=== PATIENT | female | born 1985 | race African-American/Black ===

== ENCOUNTER 2016-06-24 20:21 | Observation (INO) ==
[2016-06-24] MEDS ORDERED: ASPIRIN 325 MG TABLET PO STA (22:05)
--- NOTE | 2016-06-24 22:09 | EKG Report ---
Stationary ECG Study [facility] ER Test Date: 06/24/2016 9:04:21 PM Pat Name: JOSE GARCIA Department: Room: Gender: F Juvenile Justice Officer: : 1985 Requested by: Blaise Dumont Order Number: [id number] Muna MD: TALI QUARLES Intervals [place] Rate: 79 P: 19 TX: 126 QRS: 43 QRSD: 85 T: 3 QT: 363 QTc: 398 Interpretive Statements SINUS RHYTHM Electronically Signed On 06-26-16 11:21:42 CDT by TALI QUARLES [email or web address]
--- NOTE | 2016-06-24 22:17 | Emergency Department Note ---
Srinivas Toussaint Gwan, am scribing for, and in the presence of, Blaise Elizabeth MD 22 :07. Clara Toussiant Charles R, MD, personally performed the services described in this documentation, ascribed by Shelia Espino in my presence, and it is both accurate and complete . Arrival - Arrival Chief Complaint: Non-Specific Stated Complaint: PAIN IN LEFT ARM/NECK ED Nursing Triage Note: pt to traige c/o left side tingling numbness since last night. pt states left eye/ buring / seing floaters. pt states she has an appt. with dr thomas for enlarged heart. pt has had several tia in the past Mode of Arrival: Ambulatory Limitations: No Limitations Source: Patient, Old Records Reviewed, RN Notes Reviewed Time Seen by Provider: 06/24/16 21:19 - History of Present Illness HPI Narrative: Pt is a 30 y/o female, with a hx of TIA, who presents to the ED with a c/o left sided facial/arm/hand tingling/numbness/weakness and elevated BP with an onset last night. During triage, pt's BP was 145/90. Patient stated that she is also having intermittent SOB that began to worsen tonight prompting her visit to the ED for further evaluation. Patient confirmed that she took a low dose aspirin today, that she is followed by Dr. Montero and that she has an appointment with Dr. Whatley in 07/2016. She denies any hx of DM or having any injury/trauma to her left side. Pt has a PMHx of CHF, HTN and dyslipidemia. No other problems/ complaints reported in ED. Onset (ago): day(s) Consistency: constant Severity: moderate Allergies/Adverse Reactions: Allergies Allergy/AdvReac Type Severity Reaction Status Date / Time No Known Allergies Allergy Verified 06/24/16 21:00 Home Medications: Home Medications Medication Instructions Recorded Confirmed Type Aspirin [Ecotrin] 81 mg PO DAILY 11/11/14 12/23/15 History hydroCHLOROthiazide 25 mg PO DAILY 11/11/14 12/23/15 History [Hydrochlorothiazide] Ondansetron [Ondansetron Odt] 4 mg PO Q4H PRN #10 tab.rapdis 08/19/15 12/23/15 Rx Esomeprazole Magnesium [Nexium] 20 mg PO DAILY 12/22/15 12/23/15 History Gabapentin 300 mg PO TID 12/22/15 12/23/15 History Metoprolol Succinate 100 mg PO DAILY 12/22/15 12/23/15 History Pravastatin [Pravachol] 20 mg PO BEDTIME #30 tablet 12/23/15 Rx traMADol TAB [Ultram] 1 tablet PO Q6HR PRN 12/23/15 12/23/15 History Review of System - Review of System 12 point system: reviewed and no additional remarkable complaints except as stated - Review of System Musculoskeletal: Present: arm pain (numbness/weakness/tingling), neck pain ( left sided numbness/weakness/tingling) Medical,Surgical,& Family Hx - Medical History Cardio: History of: CHF, Hypertension Neurology: History of: TIA (2011. 2012) Endocrine: History of: Dyslipidemia Musculoskeletal: History of: Back/Neck Problems (disc) - Surgical History Reproductive Surgeries: Surgical HX of;: Section - Family History Family History: Reports;: Family Diabetes, Family Hypertension - Social History Smoking Status: Never smoker Frequency of Alcohol Use: None Type of Drug Use: None Exam Vital Signs: Vital Signs Temperature 98.0 F 06/24/16 22:48 Pulse Rate 76 06/24/16 22:48 Respiratory Rate 20 06/24/16 22:48 Blood Pressure 145/90 06/24/16 22:48 O2 Sat by Pulse Oximetry 100 06/24/16 22:44 - General General appearance: alert, in no apparent distress - Head Head exam: Present: atraumatic, normocephalic - Eye Eye exam: Present: normal appearance, PERRL, EOMI - ENT ENT exam: Present: normal oropharynx, mucous membranes moist, TM's normal bilaterally, normal external ear exam - Neck Neck exam: Present: full ROM, trachea midline. Absent: tenderness, meningismus , lymphadenopathy - Chest Chest inspection: Present: symmetric chest wall rise. Absent: tenderness - Respiratory Respiratory exam: Present: normal lung sounds bilaterally. Absent: respiratory distress - Cardiovascular Cardiovascular exam: Present: regular rate, normal rhythm, normal heart sounds. Absent: murmur, rubs, gallop - Abdominal Exam Abdominal exam: Present: soft, normal bowel sounds. Absent: distention, tenderness, guarding - Extremities Exam Extremities exam: Present: full ROM. Absent: tenderness, pedal edema, calf tenderness - Back Exam Back exam: Present: full ROM. Absent: tenderness - Psychiatric Psychiatric exam: Present: normal affect, normal mood - Skin Skin exam: Present: warm, dry, intact, normal color Course - Consultations Consultation #1: spoke to Dr Delgadillo he said that we could admit the patient and he will see her in the morning at the hospital Time: 22:17 Consultation #2: Hospitalist will admit patient Time: 22:18 Results - Labs CBC & BMP: 06/24/16 22:22 06/24/16 22:22 Lab Results: I have reviewed the patients labs Disposition Clinical Impression: TIA (transient ischemic attack), Left sided numbness Case discussed with: patient, patient's family Disposition: Still a Patient Condition: Stable Time of Disposition: 23:06
[2016-06-24] MEDS ORDERED: ASPIRIN 325 MG TABLET ONE (22:21)
--- NOTE | 2016-06-24 22:24 | CT Report ---
CT of the head without contrast. Indication: Hemiparesthesias. Signs and symptoms of a stroke. Comparison: December 22, 2015. There is a partial empty sella. The ventricles are normal in size and configuration. There is no mass effect, midline shift, or area of hemorrhage. The calvarium is intact. The mastoid air cells are clear. The included paranasal sinuses are clear. Impression: No acute abnormality or interval change is seen. The CT exam was performed using one or more of the following dose reduction techniques: Automated exposure control, adjustment of the mA and/or kV according to patient size, or use of iterative reconstruction technique. PROCEDURE INTERPRETED AT [facility] DEPARTMENT OF RADIOLOGY Final Report Signed by: Dr. Toshia Hahn
--- NOTE | 2016-06-24 22:24 | XRay Report ---
Portable chest. Indication: Cardiomegaly. Comparison: November 11, 2014 The heart and mediastinal contours are unremarkable. The pulmonary vasculature is normal. There is no consolidation, pneumothorax, or pleural effusion. The osseous structures are unremarkable. Impression: No abnormality is seen. PROCEDURE INTERPRETED AT [facility] DEPARTMENT OF RADIOLOGY Final Report Signed by: Dr. Toshia Hahn
[2016-06-24 22:46] LABS: Basophils % 0.2 % (0.0-0.8); Eosinophils # 0.2 10*3/uL (0.0-0.87); Eosinophils % 1.9 % (0.00-10.9); Hematocrit 34.3 VOL% (35.7-47.0); Hemoglobin 10.4 GM/DL (12.0-16.0); Immature Granulocytes % 0.3 %; Immature Granulocytes Absolute 0.03 #; Lymphocytes # 3.5 10*3/uL (1.4-4.0); Lymphocytes % 34.6 % (21.3-54.2); Mean Corpuscular HGB Conc 30.3 GM/DL (32-36); Mean Corpuscular Hemoglobin 22 PG (27-34); Mean Corpuscular Volume 73.8 FL (87-102); Mean Platelet Volume 11.2 FL (9.6-12.0); Monocytes # 0.8 10*3/uL (0.11-0.8); Monocytes % 7.9 % (1.7-12.7); Neutrophils # 5.6 10*3/uL (1.4-7.4); Neutrophils % 55.1 % (38.7-73.9); Platelet Count 231 T/CUMM (130-400); Red Blood Count 4.65 MC/CUMM (3.8-5.5); Red Cell Distribution Width 14.6 % (9.3-17.3); White Blood Count 10.1 T/CUMM (4-12)
[2016-06-24 22:48] LABS: Apearance,Urine CLEAR (Clear); Bilirubin,Urine Negative (Negative); Blood, Urine Negative (Negative); Glucose,Urine (UA) Negative (Negative); Ketones,Urine Negative (Negative); Nitrite,Urine Negative (Negative); Protein,Urine Negative; RBC,Urine 1 /HPF (0-4); Squamous Epithelial Cell,Urine Occasional /HPF (0-10); Urine Color Straw (Yellow); Urine Specific Gravity 1.013 (1.001-1.035); Urine Urobilinogen < 2.0 EU/DL (0.2-1.0); WBC,Urine 1 /HPF (0-6)
[2016-06-24 22:55] LABS: PT Patient Result 10.2 SECS; Partial Thromboplastin Time 30.7 SECS (0-40)
[2016-06-24 23:02] LABS: Alanine Aminotransferase 21 U/L (13-56); Albumin 3.7 G/DL (3.4-5.0); Alkaline Phosphatase 47 U/L (45-117); Aspartate Amino Transferase 20 U/L (0-37); Bilirubin,Total < 0.39 MG/DL (0.2-1.0); Blood Urea Nitrogen 11 MG/DL (7-18); Calcium 8.6 MG/DL (8.5-10.1); Glucose 105 MG/DL (74-106); Osmolality,Calculated 275.5 MOS/KG (273-304); Potassium 3.5 MMOL/L (3.5-5.1); Sodium 139 MMOL/L (136-145); Total Protein 7.5 G/DL (6.4-8.3)
[2016-06-24 23:18] LABS: Barbiturates Screen,Urine Negative (Negative); Benzodiazepines Screen,Urine Negative (Negative); Cannabinoid Screen,Urine Negative (Negative); Opiate Screen,Urine Negative (Negative); Phencyclidine Screen,Urine Negative (Negative)
--- NOTE | 2016-06-24 23:55 | Hospitalist History & Physical ---
Assessment and Plan (1) TIA (transient ischemic attack) Status: Acute Current Visit: Yes (2) Hypertension Status: Acute Current Visit: No (3) Degenerative disc disease Status: Acute Current Visit: No (4) History of neuropathy Status: Acute Current Visit: No (5) Left sided numbness Status: Acute Current Visit: Yes (6) Chronic migraine Status: Acute Assessment and plan: Our plan for this patient will be as follows: 1. Admit the patient to a monitored bed 2. Continue home meds as appropriate 3. Consult neurology 4. 2D echo 5. MRI Current Visit: No History of Present Illness Chief complaint: Left hand weakness History of present illness: Ms. Starks is a 30 year old female with past medical history significant for hypertension, TIA, cardiomyopathy, and history of pancreatitis who is in her normal state of health to the past couple of days. Patient's been having this left arm weakness that is been coming and going. She says when it is present are numb arm feels numb and tingly. She has had TIAs before and it affected the same side. When she checks her blood pressure when first came in her blood pressure was elevated. Currently is not elevated while in the hospital. She did not have any problem with her speech or walking. Patient was at [employer] and her elementary school tutor urged to come into the hospital for further evaluation. She is a patient of Dr. Montero and Dr. Montero has agreed to see her in the morning Home Medications Medication Instructions Recorded Confirmed Type Aspirin [Ecotrin] 81 mg PO DAILY 11/11/14 12/23/15 History hydroCHLOROthiazide 25 mg PO DAILY 11/11/14 12/23/15 History [Hydrochlorothiazide] Ondansetron [Ondansetron Odt] 4 mg PO Q4H PRN #10 tab.rapdis 08/19/15 12/23/15 Rx Esomeprazole Magnesium [Nexium] 20 mg PO DAILY 12/22/15 12/23/15 History Gabapentin 300 mg PO TID 12/22/15 12/23/15 History Metoprolol Succinate 100 mg PO DAILY 12/22/15 12/23/15 History Pravastatin [Pravachol] 20 mg PO BEDTIME #30 tablet 12/23/15 Rx traMADol TAB [Ultram] 1 tablet PO Q6HR PRN 12/23/15 12/23/15 History Allergies Allergy/AdvReac Type Severity Reaction Status Date / Time No Known Allergies Allergy Verified 06/24/16 21:00 Medical,Surgical,& Family Hx - Medical History Cardio: History of: CHF, Hypertension Neurology: History of: TIA (2012. 2012) Endocrine: History of: Dyslipidemia Musculoskeletal: History of: Back/Neck Problems (disc) - Surgical History Reproductive Surgeries: Surgical HX of;: Section - Family History Family History: Reports;: Family Diabetes, Family Hypertension - Social History Smoking Status: Never smoker Frequency of Alcohol Use: None Type of Drug Use: None 12 point system: reviewed and no additional remarkable complaints except as stated Exam - Constitutional Vitals: Period Temp Pulse Resp BP Sys/Ta Pulse Ox Last 24 Hr 98.0 F-98.0 F 72-81 18-20 127-145/62-90 98-100 General appearance: normal weight - Head Head exam: Present: normal inspection - Eye Eye exam: Present: EOMI Pupils: Present: STEFF - ENT ENT exam: Present: normal exam, normal external ear exam - Neck Neck exam: Present: normal inspection - Respiratory Respiratory exam: Present: clear to auscultation bilaterally - Cardiovascular Cardiovascular exam: Present: regular rate and rhythm - GI/Abdominal GI/Abdominal exam: Present: normal bowel sounds - Extremities Exam Extremities exam: Present: normal inspection - Back Exam Back exam: Present: normal inspection - Neurological Exam Neurological exam: Present: alert, other (Slight decrease in handgrip on the left) - Psychiatric Psychiatric exam: Present: normal affect - Skin Skin exam: Present: normal color Results - Labs CBC & BMP: 06/24/16 22:22 06/24/16 22:22
[2016-06-24] MEDS ORDERED: LABETALOL 20 MG/4 ML SYRINGE IV PRN (23:57)
[2016-06-24] MEDS ORDERED: ACETAMINOPHEN 325 MG TABLET PO PRN (23:57)
[2016-06-24] MEDS ORDERED: ONDANSETRON 4 MG/2 ML VIAL IV PRN (23:57)
[2016-06-24] MEDS ORDERED: ZALEPLON 5 MG CAPSULE PO PRN (23:57)
[2016-06-25 01:47] LABS: Risk Ratio 4.09; VLDL CHOLESTEROL 43.2 MG/DL
[2016-06-25 07:55] VITALS: BP 118/73
[2016-06-25] MEDS ORDERED: ASPIRIN 325 MG TABLET PO SCH (09:00)
--- NOTE | 2016-06-25 09:29 | Event Note ---
Pt gone for MRI.
--- NOTE | 2016-06-25 10:20 | Magnetic Resonance Report ---
MR head/brain wo con Indication: Left hand weakness Comparison: MRI brain dated December 23, 2015 Technique: Multiplanar magnetic resonance imaging was performed of the brain without the use of intravenous contrast. Findings: Interval appearance of subcentimeter hyperintense T2 focus within the periatrial white matter of the right parietal lobe. The midline structures are nondisplaced. There is no evidence of hydrocephalus. The russell-white matter differentiation is maintained. There is no evidence of acute intracranial hemorrhage or ischemia. The included orbits and their contents appear within normal limits. T2 major vascular flow voids are maintained. IMPRESSION: Interval appearance of subcentimeter hyperintense T2 focus within the periatrial white matter of the right parietal lobe. This finding is nonspecific. Considerations include demyelinating process such as multiple sclerosis as well as migraine related signal abnormality. PROCEDURE INTERPRETED AT [facility] DEPARTMENT OF RADIOLOGY Final Report Signed by: Dr Bonifacio Quiroz
--- NOTE | 2016-06-25 11:35 | Discharge Summary ---
Hospital Course - Hospital Course Hospital Course: 30-year-old black female admitted to the hospital with left arm and hand numbness and tingling. She has a history of TIA and migraines in the past. She was admitted for further observation and workup. She underwent an MRI which was negative for acute stroke. It does show an area of unspecified importance that could be related to underlying multiple sclerosis versus migraines. I had a lengthy discussion with the patient regarding this MRI finding. She does have migraines but has them infrequently. She does follow- up with Dr. Yash Marshall as an outpatient and believes that she has been worked up for multiple sclerosis in the past. Neurology is on bypass this weekend and her symptoms have resolved completely. She is being discharged home to follow- up with Dr. Yash Marshall in his office in the next 1-2 weeks. Her home medications were reviewed and reconciled. The patient is a full code. She is in no distress and has reached maximal benefit from this hospitalization. - Time spent with patient Time with patient DS: Less than 30 minutes Diagnosis - Discharge Diagnosis (1) TIA (transient ischemic attack) Status: Inactive (2) Hypertension Status: Chronic (3) Degenerative disc disease Status: Chronic (4) History of neuropathy Status: Chronic (5) Chronic migraine Status: Chronic (6) Left sided numbness Status: Resolved Specialty Discharge - Follow Up or Referrals Follow up with: Allan Montero MD [Physician] - 06/29/16 9:45 am ([employer] IN BOTTLES, INSURANCE CARD, ACID DUMPER'S LICENSE TO APPT.) Discharge Plan - Discharge Data Disposition: Disch To Home/Self Care Condition at Discharge: Stable Discharge Diet: advance to your usual diet Activity: resume usual activities as tolerated Hygiene: no restrictions Weight Bearing at Discharge: full weight bearing Driving: no restrictions - Discharge Medications Continue hydroCHLOROthiazide [Hydrochlorothiazide] 25 mg PO DAILY Aspirin [Ecotrin] 81 mg PO DAILY Ondansetron [Ondansetron Odt] 4 mg PO Q4H PRN #10 tab.rapdis PRN Reason: Nausea Esomeprazole Magnesium [Nexium] 20 mg PO DAILY Metoprolol Succinate 100 mg PO DAILY Gabapentin 300 mg PO TID traMADol TAB [Ultram] 1 tablet PO Q6HR PRN PRN Reason: Pain Pravastatin [Pravachol] 20 mg PO BEDTIME #30 tablet - Follow Up or Referral Follow Up: Allan Montero MD [Physician] - 06/29/16 9:45 am ([employer] IN BOTTLES, INSURANCE CARD, ACID DUMPER'S LICENSE TO APPT.) - Forms/Instructions Instructions: Transient Ischemic Attack (DC), Chronic Hypertension (DC) Exam - Constitutional Vitals: Period Temp Pulse Resp BP Sys/Ta Pulse Ox Last 24 Hr 97.1 F-97.8 F 73-85 18-20 108-130/62-73 98-100 Exam: Constitutional System: Mild distress. No tremulousness. Head: Normocephalic, atraumatic. Ears, Nose and Throat System: No pain or tenderness. No epistaxis or discharge Eyes System: Pupils equal, round, and reactive. Extraocular muscles intact. Neck: Supple, without adenopathy, No jugular venous distention. No thyromegaly, neck mass, or prior surgery apparent. Respiratory System: Chest clear to auscultation. Cardiovascular System: Heart with regular rate and rhythm. No murmur. GI System: Abdomen soft, nontender. Normo active bowel sounds present. Musculoskeletal System: limbs with no pedal edema. Full distal pulses. Neurological System: No discernable sensory deficit. No aphasia Psychiatric System: Conversation is rational Discharge Results - Imaging and Cardiology Procedure: MRI: image reviewed by me, report reviewed by me DS: Provider Date of admission: 06/24/16 23:57 Primary care physician: . No PCP Attending physician on admission: Luis Zamudio MD Consults: 06/25/16 00:02 Consult to Physician [CONS] Routine Comment: patient of his Consulting Provider: Allan Montero Discharging clinician: Luis Zamudio MD Expected date of discharge: 06/25/16
--- NOTE | 2016-06-25 20:41 | ECHO Report ---
Malu Starks Exam Date: 06/25/2016 10:28 Referring Physician: Technologist: Whitney Ellington Age: 30 Ht (in): 65 Wt (lb): 199 Gender: F Exam Location: [facility] Echo Indications: HTN, Hx. post cardiomyopathy, Lt. Sided numbness, TIA BP: 118 / 73 HR: 88 Rhythm: Sinus Technical Quality: Good IMPRESSIONS Normal LV systolic and diastolic function, ejection fraction 55%. Trace mitral and pulmonic regurgitation. MEASUREMENTS (Male / Female) Normal Values 2D ECHO LV Diastolic Diameter PLAX 3.9 cm 4.2 - 5.9 / 3.9 - 5.3 cm LV Systolic Diameter PLAX 2.6 cm LV Fractional Shortening PLAX 32.8 % IVS Diastolic Thickness 1.1 cm 0.6 - 1.0 / 0.6 - 0.9 cm LVPW Diastolic Thickness 1.2 cm 0.6 - 1.0 / 0.6 - 0.9 cm RV Internal Dim ED PLAX 2.0 cm Aortic Root Diameter 2.1 cm LA Systolic Diameter LX 2.9 cm 3.0 - 4.0 / 2.7 - 3.8 cm FINDINGS Left Ventricle Normal left ventricular size and systolic function, left ventricular ejection fraction is estimated at 55%. Right Ventricle Normal right ventricular size. Right Atrium Normal right atrial size. Left Atrium Normal left atrial size. Mitral Valve Mild mitral valve sclerosis. Trace mitral valve regurgitation. Aortic Valve Mild aortic valve sclerosis. Tricuspid Valve Morphologically normal tricuspid valve. Pulmonic Valve Morphologically normal pulmonic valve. Trace pulmonary valve regurgitation. Pericardium No pericardial effusion. Aorta Normal size aortic root and proximal ascending aorta. Radha Whatley MD (Electronically Signed) Final Date: 25 June 2016 20:40
== END 2016-06-25 13:31 | disposition home or self-care (01) ==
LOC: N.ED 20:21 → N.EDINP 20:21 → N.TELES 06-25 00:54
PROVIDERS: ADMIT Family Medicine; ATTEND Family Medicine